=== PATIENT | male | born 1940 | race Two or more races ===

== ENCOUNTER 2019-08-03 09:01 | Inpatient (IN) | payer MEDICARE, OTHER ==
[~2019-08-03] VITALS: Ht 154.9 cm; Wt 53.1 kg
--- NOTE | 2019-08-03 09:05 | NUR ---
PT [facility] FROM [facility], PER EMS NOTED SOB TODAY. PT HX OF COPD USUALLY ON O2@2L PTIS SLOVAK SPEAKING ALSO C/O LOWER ABDOMINAL PAIN PER CONSULTATIVE SALES ASSOCIATE. GOWNED AND PLACED ON MONITOR. VSS. AWAITING MD MARIA.
--- NOTE | 2019-08-03 09:15 | NUR ---
DR PALACIOS AT BEDSIDE FOR EVAL
[2019-08-03] MEDS ORDERED: ONDANSETRON HCL/PF 4 MG/2 ML VIAL ONE (09:21)
[2019-08-03] MEDS ORDERED: MORPHINE SULFATE INJ 4 MG/ML DISP.SYRIN ONE ×2 (09:21→10:52)
[2019-08-03] MEDS ORDERED: ALBUTEROL FS 2.5 MG/3 ML VIAL.NEB ONE (09:22)
[2019-08-03 09:29] LABS: BASOPHILS # (AUTO) 0.1 /CMM (0.0-0.2); BASOPHILS % (AUTO) 1.1 % (0.0-2.0); EOSINOPHILS % (AUTO) 1.5 % (0.0-6.0); HEMATOCRIT 41 % (39-51); HEMOGLOBIN 13.4 g/dL (13.5-17.5); LYMPHOCYTES # (AUTO) 1.1 /CMM (0.8-4.8); LYMPHOCYTES % (AUTO) 16.7 % (20.0-44.0); MEAN CORPUSCULAR HGB CONC 33 g/dl (31.0-36.0); MEAN CORPUSCULAR VOLUME 90 fL (80-96); MONOCYTES # (AUTO) 0.5 /CMM (0.1-1.30); MONOCYTES % (AUTO) 7.7 % (2.0-12.0); NEUTROPHILS # (AUTO) 4.9 /CMM (1.8-8.9); PLATELET COUNT (AUTO) 197 /CMM (150-450); RED BLOOD CELL COUNT(AUTO) 4.54 MIL/uL (4.5-6.0); WHITE BLOOD COUNT (AUTO) 6.7 K/uL (4.3-11.0)
--- NOTE | 2019-08-03 09:29 | NUR ---
RT AT BEDSIDE FOR BREATHING TREATMENT
[2019-08-03] MEDS ORDERED: ONDANSETRON HCL/PF 4 MG/2 ML VIAL IVP ONE (09:30)
[2019-08-03] MEDS ORDERED: MORPHINE SULFATE INJ 2 MG/ML DISP.SYRIN IV ONE ×2 (09:30→10:30)
[2019-08-03] MEDS ORDERED: ALBUTEROL FS 2.5 MG/3 ML VIAL.NEB NEB ONE (09:30)
[2019-08-03] MEDS ORDERED: IPRA3AMP23 IH (09:31)
[2019-08-03] MEDS ORDERED: LEVA1.2528 IH (09:31)
[2019-08-03] MEDS ORDERED: IPRA4AER IH (09:31)
[2019-08-03] MEDS ORDERED: BUDE10.2 IH (09:31)
[2019-08-03] MEDS ORDERED: PANT40TA2 PO (09:31)
[2019-08-03] MEDS ORDERED: GUAI600T53 PO (09:31)
[2019-08-03] MEDS ORDERED: MULT-659 PO (09:31)
[2019-08-03] MEDS ORDERED: MAGN400O6 PO (09:31)
[2019-08-03] MEDS ORDERED: ALBU1.257 IH (09:31)
[2019-08-03] MEDS ORDERED: COLC0.6C3 PO (09:31)
[2019-08-03] MEDS ORDERED: NA P133E RC (09:31)
[2019-08-03] MEDS ORDERED: THEO100C PO (09:31)
[2019-08-03] MEDS ORDERED: BENZ200C53 PO (09:31)
[2019-08-03] MEDS ORDERED: BISA10SU11 RC (09:31)
[2019-08-03] MEDS ORDERED: ATOR10TA PO (09:31)
[2019-08-03] MEDS ORDERED: ERGO50CA PO (09:31)
[2019-08-03] MEDS ORDERED: IBUP-1953 PO (09:31)
[2019-08-03] MEDS ORDERED: MONT10TA22 PO (09:31)
[2019-08-03 09:37] LABS: CALCIUM, SERUM 8.6 mg/dL (8.5-10.1); CARBON DIOXIDE 32 mmol/L (21-32); CHLORIDE 103 mmol/L (98-107); CREATININE 0.8 mg/dL (0.6-1.3); GLUCOSE 94 mg/dL (74-106); POTASSIUM 4.8 mmol/L (3.5-5.1); SODIUM SERUM 140 mmol/L (136-145); UREA NITROGEN, BLOOD 25 mg/dL (7-18)
[2019-08-03 09:54] LABS: ALANINE AMINOTRANSFERASE 35 U/L (12-78); ALBUMIN 3.3 g/dL (3.4-5.0); ALKALINE PHOSPHATASE 54 U/L (46-116); ASPARTATE AMINOTRANSFERASE 38 U/L (15-37); B-TYPE NATRIURETIC PEPTIDE 103 PG/ML (0-125); BILIRUBIN,DIRECT 0.1 mg/dL (0.0-0.2); BILIRUBIN,TOTAL 0.3 mg/dL (0.2-1.0); TOTAL PROTEIN, SERUM 6.7 g/dL (6.4-8.2)
--- NOTE | 2019-08-03 10:08 | NUR ---
PT TO RADIOLOGY FOR ABDOMINAL CT SCAN VIA [facility].
[2019-08-03] MEDS ORDERED: IV NS 0.9% 1,000 ML BAG IV ONE (10:30)
--- NOTE | 2019-08-03 11:15 | NUR ---
PAGED [facility].
--- NOTE | 2019-08-03 11:32 | NUR ---
SON XOCHILT CALLED AND LEFT PHONE # [phone]
--- NOTE | 2019-08-03 11:52 | NUR ---
CALLED NURSING SUP FOR TELE BED.
--- NOTE | 2019-08-03 12:02 | NUR ---
NURSING SUP GAVE TELE BED 304-1.
--- NOTE | 2019-08-03 12:12 | NUR ---
REPORT GIVEN TO KEATON OSORIO. AWAITING TRANSFER TO FLOOR.
[2019-08-03 12:30] VITALS: BP 129/71
[2019-08-03] MEDS ORDERED: ONDANSETRON HCL/PF 4 MG/2 ML VIAL IVP PRN (12:30)
[2019-08-03] MEDS ORDERED: MAG HYDROX/AL HYDROX/SIMETH 30 ML UDC PO PRN (12:30)
[2019-08-03] MEDS ORDERED: Z GUARD REMEDY 2 OZ OINT TP PRN (12:30)
[2019-08-03] MEDS ORDERED: ACETAMINOPHEN 325 MG TABLET PO PRN (12:30)
[2019-08-03] MEDS ORDERED: MAGNESIUM HYDROXIDE 30 ML UDC PO PRN (12:30)
[2019-08-03] MEDS ORDERED: ENOXAPARIN SODIUM 40 MG/0.4 ML DISP.SYRIN SQ SCH (12:30)
--- NOTE | 2019-08-03 12:30 | NUR ---
DESSERT CUP MACHINE FEEDER NOTES PT ARRIVED AT 1230, VITALS TAKEN AND RECORDED. HOOK TO TELEMONITORING WITH SR 98.
--- NOTE | 2019-08-03 12:59 | NUR ---
RESOURCE EFFICIENCY MANAGER NOTES PT JUST PULLED OUT THE RAC PIV. PT AMBULATORY AND WALKED TO THE BATHROOM, TOOK ALSO OUT THE TELEMONITORING, AND RE ATTACHED.
[2019-08-03] MEDS ORDERED: BISACODYL SUPP (10 MG) 10 MG/SUPP.RECT SUPP.RECT RC PRN (13:00)
[2019-08-03] MEDS ORDERED: ALBUTEROL HALF STRENGTH 1.25 MG/3 ML VIAL.NEB NEB SCH (13:00)
[2019-08-03] MEDS: IV D5/ 0.9% NACL 1,000 ML IV PRN (13:29)
[2019-08-03] MEDS ORDERED: THEOPHYLLINE ANHYDROUS 100 MG TAB.SR.12H PO SCH (13:30)
--- NOTE | 2019-08-03 13:30 | NUR ---
DIVERSIFIED CROPS FARMWORKER NOTES SIITTER ORDERED BY CN. NOW AT BEDSIDE.
--- NOTE | 2019-08-03 13:45 | NUR ---
CARBON ELECTRODES SUPERVISOR NOTES RECEIVED PT FROM ER VIA [employer]. PT IS A/O X2-3, [place] SPEAKING ONLY, NEEDS DECK SUPERVISOR. ANOTHER RN/JUAN JOSE AT BEDSIDE TO DECK SUPERVISOR. PT ON SUPPLEMENTARY OXYGEN AT 4L, WITH NO ACUTE RESPIRATORY DISTRESS NOTED. PT DENIES ANY PAIN OR DISCOMFORT T HE TIME OF ADMISSION. ON TELEMONITORING SR HR 98. PIV REINSERTED TO RFA G22, STARTED D5NS AT 75ML/HR, INTACT AND FLUID INFUSING WELL. SKIN ASSESSED, SKIN INTACT, NO PICTURES TAKEN AND FILED ON THE CHART. ADMITTING LW AWARE OF ADMISSION AND ORDERS PLACED. PT KEPT COMFORTABLE IN BED. HOB ELEVATED. PT'S BED IN LOWEST, LOCKED POSITION WITH SRX3. WILL CONTINUE PLAN OF CARE.
[2019-08-03] MEDS: MONTELUKAST SODIUM (10MG) 10 MG TABLET PO SCH ×2 (13:47→21:30)
[2019-08-03] MEDS: methylPREDNISolone SOD SUCC 125 MG/2ML VIAL IV SCH ×2 (13:47→21:30)
[2019-08-03] MEDS: LEVOFLOXACIN 500 MG /D5W 100ML 100 ML IV SCH (13:48)
[2019-08-03] MEDS: ALBUTEROL FS 2.5 MG/0.5 ML VIAL.NEB NEB SCH ×2 (14:58→19:04)
[2019-08-03] MEDS: IPRATROPIUM NEB FS 0.5 MG/2.5 ML AMPUL.NEB NEB SCH ×3 (14:58→22:36)
[2019-08-03] MEDS: ACETYLCYSTEINE 10% SOLN 400 MG/4 ML VIAL NEB SCH ×2 (14:58→22:36)
[2019-08-03] MEDS ORDERED: AZITHROMYCIN 250 MG TABLET PO SCH (15:00)
[2019-08-03] MEDS ORDERED: IPRATROPIUM NEB FS 0.5 MG/2.5 ML AMPUL.NEB NEB SCH (15:30)
[2019-08-03] MEDS: THEOPHYLLINE TAB 24HR 400 MG TAB.SR. PO SCH (15:41)
[2019-08-03 15:59] LABS: ABG BASE EXCESS 3.6 mmol/L; ABG OXYGEN SATURATION 96.3 % (92.0-98.5); ABG PCO2 49.5 mmHg (35.0-45.0); ABG PH 7.392 (7.350-7.450); ABG PO2 90.6 mmHg (75.0-100.0); AaDO2 79.6 mmHg; COHb 0.1 % (0.5-1.5); MetHb 0.4 % (0.0-1.5); O2Hb 95.8 % (94.0-97.0); SITE, ABG Left Brachial; VENT MODE, BG Nasal Cannula
[2019-08-03 16:00] VITALS: BP 114/72
[2019-08-03] MEDS ORDERED: methylPREDNISolone SOD SUCC 40 MG/ML VIAL IV ONE (17:00)
--- NOTE | 2019-08-03 18:36 | NUR ---
MUSICIAN INSTRUMENTAL NOTES PT IS A/O X2-3, SAMOAN/URDU SPEAKING ONLY, NEEDS SAFETY SITTER. PT HAS A SITTER BEDSIDE. PT ON SUPPLEMENTARY OXYGEN AT 4L, WITH NO ACUTE RESPIRATORY DISTRESS NOTED. PT DENIES ANY PAIN OR DISCOMFORT AT THIS TIME. ON TELEMONITORING SR HR 96. IVF D5NS AT 75ML/HR TO RFA G22, INTACT AND FLUID INFUSING WELL. ALL NEEDS AND CARE ATTENDED AND PROVIDED. PT KEPT COMFORTABLE IN BED. HOB ELEVATED. PT'S BED IN LOWEST, LOCKED POSITION WITH SRX3. WILL ENDORSE TO INCOMING NIGHT NURSE FOR ROSETTA.
--- NOTE | 2019-08-03 19:10 | NUR ---
TELE/RN OPENING NOTES: RECEIVED PT IN BED SLEEPING, VERBALLY RESPONSIVE. A/O X2-3, CUBAN SPEAKING ONLY, NEEDS PLASTER PATTERNMAKER. PT ON SUPPLEMENTARY OXYGEN AT 4L VIA NC, WITH NO ACUTE RESPIRATORY DISTRESS NOTED. DENIES ANY PAIN OR DISCOMFORT AT THIS TIME. ON TELEMONITORING SR HR 99. IV LOCATED ON THE RFA #22G, D5NS AT 75ML/HR, INTACT AND FLUID INFUSING WELL. SKIN ASSESSED, SKIN INTACT. PT KEPT COMFORTABLE IN BED. HOB ELEVATED. SAFETY MEASURES INITIATED. PT'S BED IN LOWEST, LOCKED POSITION WITH SRX3. WILL CONTINUE MONITORING PT. ACCORDINGLY.
[2019-08-03 20:00] VITALS: BP 125/85
[2019-08-03] MEDS ORDERED: BENZONATATE 100 MG CAPSULE PO PRN (21:00)
[2019-08-03] MEDS: GUAIFENESIN LA 600 MG TABLET.SA PO SCH (21:30)
[2019-08-03] MEDS: ATORVASTATIN 10 MG TABLET PO SCH (21:30)
[2019-08-03] MEDS: ENOXAPARIN SODIUM 40 MG/0.4 ML DISP.SYRIN SQ SCH (21:32)
[2019-08-03] MEDS ORDERED: MONTELUKAST SODIUM (10MG) 10 MG TABLET PO SCH (22:00)
[2019-08-04] VITALS: BP 115/77
[2019-08-04 00:05] VITALS: BP 115/77
[2019-08-04] MEDS: IPRATROPIUM NEB FS 0.5 MG/2.5 ML AMPUL.NEB NEB SCH ×6 (02:39→23:30)
[2019-08-04] MEDS: IV D5/ 0.9% NACL 1,000 ML IV PRN (02:43)
[2019-08-04 04:00] VITALS: BP 101/74
[2019-08-04] MEDS: methylPREDNISolone SOD SUCC 125 MG/2ML VIAL IV SCH ×3 (04:08→21:19)
--- NOTE | 2019-08-04 06:08 | NUR ---
TELE/RN CLOSING NOTES: RECEIVED PT IN BED SLEEPING, REMAINS RESPONSIVE. A/O X2-3, [place] SPEAKING ONLY, NEEDS OUTPATIENT PHYSICAL THERAPIST. PT ON SUPPLEMENTARY OXYGEN AT 2L VIA NC, SATURATING AT 91-94%. NO ACUTE RESPIRATORY DISTRESS NOTED. DENIES ANY PAIN OR DISCOMFORT AT THIS TIME. ON TELEMONITORING SR HR 90'S. IV LOCATED ON THE RFA #22G, D5NS AT 75ML/HR, INTACT AND FLUID INFUSING WELL. KEPT COMFORTABLE IN BED. HOB ELEVATED. ALL DUE MEDS GIVEN ORDERED. ALL NEEDS MET AND RENDERED. SAFETY MEASURES IN PLACE. PT'S BED IN LOWEST, LOCKED POSITION WITH SRX3. WILL ENDORSE TO DAY SHIFT FOR ROSETTA.
[2019-08-04 06:31] LABS: BASOPHILS % (AUTO) 0.2 % (0.0-2.0); HEMATOCRIT 38 % (39-51); HEMOGLOBIN 12.6 g/dL (13.5-17.5); LYMPHOCYTES # (AUTO) 0.3 /CMM (0.8-4.8); LYMPHOCYTES % (AUTO) 12.7 % (20.0-44.0); MEAN CORPUSCULAR HGB CONC 33 g/dl (31.0-36.0); MEAN CORPUSCULAR VOLUME 88 fL (80-96); MONOCYTES % (AUTO) 1.2 % (2.0-12.0); NEUTROPHILS # (AUTO) 2.2 /CMM (1.8-8.9); NEUTROPHILS % (AUTO) 85.9 % (43.0-81.0); PLATELET COUNT (AUTO) 192 /CMM (150-450); RED BLOOD CELL COUNT(AUTO) 4.31 MIL/uL (4.5-6.0); WHITE BLOOD COUNT (AUTO) 2.6 K/uL (4.3-11.0)
[2019-08-04 07:11] LABS: CALCIUM, SERUM 8.4 mg/dL (8.5-10.1); CREATININE 0.7 mg/dL (0.6-1.3); MAGNESIUM 2.1 mg/dL (1.8-2.4); PHOSPHORUS 2.9 mg/dL (2.5-4.9); POTASSIUM 3.9 mmol/L (3.5-5.1)
[2019-08-04] MEDS ORDERED: PANTOPRAZOLE 40 MG TABLET.DR PO SCH (07:30)
[2019-08-04 07:39] LABS: THYROID STIMULATING HORMONE 0.754 uIU/mL (0.358-3.74)
[2019-08-04 07:41] LABS: FREE PSA 0.65 ng/mL (0.00-45); PROSTATE SPECIFIC ANTIGEN SCR 5.07 ng/mL (0.00-4.00)
[2019-08-04] MEDS: ACETYLCYSTEINE 10% SOLN 400 MG/4 ML VIAL NEB SCH ×3 (07:56→23:30)
[2019-08-04] MEDS: ALBUTEROL FS 2.5 MG/0.5 ML VIAL.NEB NEB SCH ×4 (07:56→20:25)
[2019-08-04 08:00] VITALS: BP 105/98
--- NOTE | 2019-08-04 08:00 | NUR ---
FAST FOOD SERVICES MANAGER OPENING NOTES RECEIVED REPORT ON PATIENT. PATIENT APPEARS TO BE COMFORTABLE, SITTING ON CHAIR. PATIENT ON NASAL CANNULA NO SOB/ RESPIRATORY DISTRESS NOTED. ALERT AND ORIENTED X2-3, SPEAKS MALIAN. CALL LIGHT WITHIN REACH. WILL CONTINUE TO MONITOR.
[2019-08-04] MEDS: THEOPHYLLINE TAB 24HR 400 MG TAB.SR. PO SCH (08:18)
[2019-08-04] MEDS: PANTOPRAZOLE 40 MG TABLET.DR PO SCH (08:18)
[2019-08-04] MEDS: GUAIFENESIN LA 600 MG TABLET.SA PO SCH ×2 (08:18→21:19)
[2019-08-04] MEDS: COLCHICINE 0.6 MG TABLET PO SCH (08:18)
[2019-08-04] MEDS ORDERED: THEOPHYLLINE TAB 24HR 400 MG TAB.SR. PO SCH (09:00)
[2019-08-04] MEDS ORDERED: MULTIVITS,TH W-FE,OTHER MIN 1 TAB TABLET PO SCH (09:00)
[2019-08-04] MEDS: LEVOFLOXACIN 500 MG /D5W 100ML 100 ML IV SCH (12:46)
[2019-08-04 16:00] VITALS: BP 115/63
--- NOTE | 2019-08-04 19:05 | NUR ---
MS RN CLOSING NOTES PATIENT SLEEPING IN BED WITH NO SOB/ RESPIRATORY DISTRESS NOTED. CALL LIGHT WITHIN REACH, APPEARS TO BE COMFORTABLE. BED IN LOWEST POSITION, LOCKED WITH SIDE RAILS UP X2. ALL MEDS HAVE BEEN GIVEN, ALL NEEDS HAVE BEEN MET. IV ON RIGHT FOREARM 22 GAUGE PATENT AND FLUSHABLE. WILL ENDORSE REPORT TO PM NURSE.
--- NOTE | 2019-08-04 19:10 | NUR ---
MS/RN OPENING NOTES: RECEIVED PATIENT RESTING IN BED COMFORTABLY. VERBALLY RESPONSIVE. A/O X2-3, [place] SPEAKING ONLY, NEEDS PACK MULE WORKER. PT ON SUPPLEMENTARY OXYGEN AT 2L VIA NC, WITH NO ACUTE RESPIRATORY DISTRESS NOTED. DENIES ANY PAIN OR DISCOMFORT AT THIS TIME. IV LOCATED ON THE RFA #22G, INTACT, PATENT AND FLUSHING WELL. REFUSING FLUIDS AT THIS TIME. SKIN ASSESSED, SKIN INTACT. PT KEPT COMFORTABLE IN BED. HOB ELEVATED. SAFETY MEASURES INITIATED. BED ALARM ON, PT'S BED IN LOWEST, LOCKED POSITION WITH SRX3. WILL CONTINUE MONITORING PT. ACCORDINGLY.
[2019-08-04 20:00] VITALS: BP 111/68
--- NOTE | 2019-08-04 21:09 | NUR ---
MS/RN NOTES: PATIENT PULLED OUT HIS IV LINE ON THE RIGHT FA #22G. APPLIED PRESSURE AND GAUZE TO PREVENT BLEEDING. STARTED A NEW LINE ON THE LEFT FA #20G INTACT, PATENT AND FLUSHING WELL. PATIENT IS REFUSING HIS IV FLUIDS AT THIS TIME. WILL CONTINUE MONITORING PT. ACCORDINGLY.
[2019-08-04] MEDS: ATORVASTATIN 10 MG TABLET PO SCH (21:19)
[2019-08-04] MEDS: MONTELUKAST SODIUM (10MG) 10 MG TABLET PO SCH (21:19)
[2019-08-04] MEDS: ENOXAPARIN SODIUM 40 MG/0.4 ML DISP.SYRIN SQ SCH (21:21)
[2019-08-05] MEDS: IPRATROPIUM NEB FS 0.5 MG/2.5 ML AMPUL.NEB NEB SCH ×4 (04:23→14:46)
[2019-08-05] MEDS: methylPREDNISolone SOD SUCC 125 MG/2ML VIAL IV SCH ×2 (05:16→12:46)
[2019-08-05 06:23] LABS: BASOPHILS % (AUTO) 0.1 % (0.0-2.0); HEMATOCRIT 35 % (39-51); HEMOGLOBIN 11.6 g/dL (13.5-17.5); LYMPHOCYTES # (AUTO) 0.4 /CMM (0.8-4.8); LYMPHOCYTES % (AUTO) 5.1 % (20.0-44.0); MEAN CORPUSCULAR HGB CONC 33 g/dl (31.0-36.0); MEAN CORPUSCULAR VOLUME 89 fL (80-96); MONOCYTES # (AUTO) 0.2 /CMM (0.1-1.30); MONOCYTES % (AUTO) 2.7 % (2.0-12.0); NEUTROPHILS # (AUTO) 6.7 /CMM (1.8-8.9); NEUTROPHILS % (AUTO) 92.1 % (43.0-81.0); PLATELET COUNT (AUTO) 194 /CMM (150-450); RED BLOOD CELL COUNT(AUTO) 3.91 MIL/uL (4.5-6.0); WHITE BLOOD COUNT (AUTO) 7.3 K/uL (4.3-11.0)
[2019-08-05 06:52] LABS: CALCIUM, SERUM 8.1 mg/dL (8.5-10.1); MAGNESIUM 2.3 mg/dL (1.8-2.4); PHOSPHORUS 2.7 mg/dL (2.5-4.9); POTASSIUM 4.1 mmol/L (3.5-5.1)
--- NOTE | 2019-08-05 07:22 | NUR ---
TELE/RN CLOSING NOTES: PT IN BED AWAKE, REMAINS RESPONSIVE. A/O X2-3, MALDIVIAN SPEAKING ONLY, NEEDS MUSHROOM GROWING SUPERVISOR. PT ON SUPPLEMENTARY OXYGEN AT 2L VIA NC, SATURATING AT 91-94%. NO ACUTE RESPIRATORY DISTRESS NOTED. DENIES ANY PAIN OR DISCOMFORT AT THIS TIME. ON TELEMONITORING SR HR 90'S. AMBULATED THROUGH THE [facility] LAST NIGHT. IV LOCATED ON THE LFA #20G, INTACT AND FLUID INFUSING WELL. REFUSING FLUIDS. KEPT COMFORTABLE IN BED. ALL DUE MEDS GIVEN ORDERED. ALL NEEDS MET AND RENDERED. SAFETY MEASURES IN PLACE. PT'S BED IN LOWEST, LOCKED POSITION WITH SRX3. WILL ENDORSE TO DAY SHIFT FOR ROSETTA. Addendum: 08/05/19 at 0724 by BELL HANNON RN INCORRECT. PLS DISREGARD.
--- NOTE | 2019-08-05 07:23 | NUR ---
MS/RN CLOSING NOTES: PT IN BED AWAKE, REMAINS RESPONSIVE. A/O X2-3, BRAZILIAN SPEAKING ONLY, NEEDS PICKING TECH. PT ON SUPPLEMENTARY OXYGEN AT 2L VIA NC, SATURATING AT 91-94%. NO ACUTE RESPIRATORY DISTRESS NOTED. DENIES ANY PAIN OR DISCOMFORT AT THIS TIME. AMBULATED THROUGH THE [facility] LAST NIGHT. IV LOCATED ON THE LFA #20G, INTACT AND FLUID INFUSING WELL. REFUSING FLUIDS. KEPT COMFORTABLE IN BED. ALL DUE MEDS GIVEN ORDERED. ALL NEEDS MET AND RENDERED. SAFETY MEASURES IN PLACE. PT'S BED IN LOWEST, LOCKED POSITION WITH SRX3. WILL ENDORSE TO DAY SHIFT FOR ROSETTA.
[2019-08-05] MEDS: ALBUTEROL FS 2.5 MG/0.5 ML VIAL.NEB NEB SCH ×3 (07:27→14:47)
[2019-08-05] MEDS: ACETYLCYSTEINE 10% SOLN 400 MG/4 ML VIAL NEB SCH ×2 (07:27→14:47)
[2019-08-05 08:00] VITALS: BP 123/68
--- NOTE | 2019-08-05 08:00 | NUR ---
MS/RN OPENING NOTES: PT IN BED AWAKE, REMAINS RESPONSIVE. A/O X2-3, CZE[place] SPEAKING ONLY, NEEDS SWITCH COUPLER. PT ON ROOM AIR SATURATING AT 91-94% AMBULATING IN AND OUT OF THE ROOM ON ROOM AIR. NO ACUTE RESPIRATORY DISTRESS NOTED. DENIES ANY PAIN OR DISCOMFORT AT THIS TIME. AMBULATED THROUGH THE [facility] .IV LOCATED ON THE LFA #20G, INTACT REFUSING FLUIDS. KEPT COMFORTABLE IN BED. NEEDS MET AND RENDERED. SAFETY MEASURES IN PLACE. PT'S BED IN LOWEST, LOCKED POSITION WITH SRX3.CALL LIGHT PLACED WITHIN REACH.
[2019-08-05] MEDS: GUAIFENESIN LA 600 MG TABLET.SA PO SCH (08:44)
[2019-08-05] MEDS: COLCHICINE 0.6 MG TABLET PO SCH (08:44)
[2019-08-05] MEDS: PANTOPRAZOLE 40 MG TABLET.DR PO SCH (08:44)
[2019-08-05] MEDS: THEOPHYLLINE TAB 24HR 400 MG TAB.SR. PO SCH (08:57)
[2019-08-05] MEDS ORDERED: MULTIVIT W/MINERALS 1 TAB TABLET PO SCH (09:00)
[2019-08-05] MEDS: LEVOFLOXACIN 500 MG /D5W 100ML 100 ML IV SCH (12:45)
--- NOTE | 2019-08-05 13:30 | NUR ---
REPORT CALLED IN TO [facility]'S RN PLANNING AND ANALYSIS MANAGER,GILBERTO.CHECKED ALL PT'S BELONGINGS AND PLACED IN A BAG AND IV H/L TO RT HAND REMOVED WITH NO BLEEDING NOTED.PT WAS VERY ANXIOUS TO BE GO HOME.NOTIFIED PT'S SON,OLIVER ABOUT THE PT'S DISCHARGE.AWAITING FOR THE AMBULANCE ARRIVAL.
[2019-08-05] MEDS ORDERED: LEVO500T90 PO (13:50)
[2019-08-05] MEDS ORDERED: PRED20TA PO (13:50)
--- NOTE | 2019-08-05 14:47 | NUR ---
pt being dc'ed
[2019-08-05 16:00] VITALS: BP 124/79
--- NOTE | 2019-08-05 19:03 | NUR ---
STILL AWAITING FOR THE AMBULANCE ARRIVAL.DIESEL LOCOMOTIVE ENGINEERCAMMIE CALLED [facility] TO CONFIRM AMBULANCE TIME ARRIVAL.PT IS READY FOR DISCHARGE AND AWAITING FOR ORTHOPEDICS PEDIATRIC PHYSICIAN.
--- NOTE | 2019-08-05 20:05 | NUR ---
RN NOTES PATIENT PICKED UP BY AMBULANCE IN GOOD AND STABLE CONDITION, ALERT AND ORIENTED X3, ROOM AIR, NO COMPLAIN OF PAIN, SPOKE WITH SON ON THE PHONE, ALL BELONGINGS GIVEN TO PATIENT, DISCHARGE PAPERS GIVEN TO [facility].
[2019-08-06] MEDS ORDERED: ERGOCALCIFEROL (VITAMIN D 2) 50,000 UNIT CAPSULE PO SCH (09:00)
== END 2019-08-05 19:58 | DRG 190 ==
LOC: ER 09:05 → EDBD 12:05 → TELE 12:05 → MED 08-04 08:41
PROVIDERS: ADMIT Registered Nurse; ATTEND Student in an Organized Health Care Education/Training Program
DX: J44.1 Chronic obstructive pulmonary disease with (acute) exacerbation (principal); J96.20 Acute and chronic respiratory failure, unspecified whether with hypoxia or hypercapnia; M48.56XA Collapsed vertebra, not elsewhere classified, lumbar region, initial encounter for fracture; M48.00 Spinal stenosis, site unspecified; I10 Essential (primary) hypertension; Z79.51 Long term (current) use of inhaled steroids; Z79.899 Other long term (current) drug therapy; K43.9 Ventral hernia without obstruction or gangrene; J84.10 Pulmonary fibrosis, unspecified; R26.9 Unspecified abnormalities of gait and mobility; E78.5 Hyperlipidemia, unspecified; D73.4 Cyst of spleen; K21.9 Gastro-esophageal reflux disease without esophagitis; N40.0 Benign prostatic hyperplasia without lower urinary tract symptoms; Z87.891 Personal history of nicotine dependence; Z99.81 Dependence on supplemental oxygen
CPT/HCPCS: 36415; 36600; 71045-TC; 80048-TC; 80061-TC; 80076-TC; 82803-TC; 83735-TC; 83880; 84100-TC; 84153-TC; 84154-TC; 84443-TC; 84484-TC; 85025-TC; 85730-TC; 87040-TC; 87081-TC; 92611-TC; 94799-TC; 97116-TC; 97530-TC; G0378; J1650; J1956; J2270; J2405; J2930; J7030; J7042